=== PATIENT | female | born 1955 | race Caucasian/White ===

== ENCOUNTER 2017-05-14 13:01 | Emergency (ER) | payer SELFPAY ==
[2017-05-14 13:07] VITALS: BP 168/72
[2017-05-14] MEDS ORDERED: CEPHALEXIN 500 MG CAPSULE PO ONE (14:24)
[2017-05-14] MEDS ORDERED: SULFAMETHOXAZOLE/TRIMETHOPRIM 800-160 MG TABLET PO ONE (14:24)
[2017-05-14] MEDS ORDERED: CEFTRIAXONE INJ 1000 MG VIAL IM ONE ×2 (14:30→14:32)
--- NOTE | 2017-05-14 14:30 | ER Document Report ---
HPI - HPI Patient complains to provider of: right arm erythema Onset: Other - wednesday Pain Level: 3 Context: 61 yo female had right dorsal forearm pain afer visiting [facility] in [place]. woke up wednesday with erythema which spread upwards but is getting better. Spouse thinks he saw a spider bite. No fever or chills. denies tick bite Associated Symptoms: None Exacerbated by: Denies Relieved by: Denies Similar symptoms previously: No Recently seen / treated by doctor: No - ROS ROS below otherwise negative: Yes Systems Reviewed and Negative: Yes All other systems reviewed and negative - MUSCULOSKELETAL Musculoskeletal: REPORTS: Extremity pain - rt arm reddened but sl improve Past Medical History - General Information source: Patient - Social History Smoking Status: Never Smoker Chew tobacco use (# tins/day): No Frequency of alcohol use: None Drug Abuse: None Lives with: Spouse/Significant other Family History: Reviewed & Not Pertinent Patient has suicidal ideation: No Patient has homicidal ideation: No - Medical History Medical History: Negative Renal/ Medical History: Denies: Hx Peritoneal Dialysis Surgical Hx: Negative Past Surgical History: Reports: Hx Mastectomy - rt Vertical Provider Document - CONSTITUTIONAL Agree With Documented VS: Yes Exam Limitations: No Limitations General Appearance: No Apparent Distress - INFECTION CONTROL TRAVEL OUTSIDE OF THE [place] IN LAST 30 DAYS: No - HEENT HEENT: Normocephalic - NECK Neck: Supple - RESPIRATORY Respiratory: Breath Sounds Normal, No Respiratory Distress O2 Sat by Pulse Oximetry: 99 - CARDIOVASCULAR Cardiovascular: Regular Rate, Regular Rhythm - MUSCULOSKELETAL/EXTREMETIES Musculoskeletal/Extremeties: MAEW, FROM, Tender - induarted warm red right forearm 12 cm, non circumferential wtih ascending macular lumphangitis above the medial elbow. no nodes. - NEURO Level of Consciousness: Awake, Alert, Appropriate Motor/Sensory: No Motor Deficit, No Sensory Deficit - DERM Integumentary: Warm, Dry Notes: see above Course - Vital Signs Vital signs: Temp Pulse Resp BP Pulse Ox 97.9 F 101 H 18 168/72 H 99 05/14/17 13:06 05/14/17 13:06 05/14/17 13:06 05/14/17 13:06 05/14/17 13:06 Discharge - Discharge Clinical Impression: Cellulitis of right forearm, Acute lymphangitis of right upper extremity Condition: Good Disposition: HOME, SELF-CARE Instructions: Clindamycin ([facility]), Elevate the Injury ([facility]), Family Physicians / Practices, Rocephin ([facility]), Warm Packs ([facility]) Additional Instructions: Recheck forearm in 48 hours, return sooner if worse Did not remove the skin markings. Antibiotics as prescribed Prescriptions: Clindamycin HCl [Cleocin 150 mg Capsule] 300 mg PO TID #42 capsule
[2017-05-14] MEDS ORDERED: CLINDAMYCIN HCL 150 MG CAPSULE PO ONE (14:32)
[2017-05-14] MEDS ORDERED: LIDOCAINE 1% INJ-PF (10 MG/ML) 30 ML SDV ONE (14:36)
== END 2017-05-14 15:06 | disposition home or self-care (01) ==
LOC: ER 13:01
DX: L03.113 Cellulitis of right upper limb (principal); I89.1 Lymphangitis
CPT/HCPCS: 99281; 96372; J3490; J0696